=== PATIENT | female | born 2000 | race Caucasian/White ===

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

== ENCOUNTER 2022-08-03 22:28 | Emergency (ER) | payer OTHER ==
[~2022-08-03] VITALS: Ht 157.5 cm; Wt 86.2 kg
[~2022-08-03 22:28] MED LIST changes: +BUPRENORPHINE-1 EACH SL
--- OUTSIDE RECORDS SUMMARY | 2022-08-03 22:33 | XMS ---
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 Luana has no Care Guidelines for this patient. Latoya VISIT COUNT (12 MO.) 2 STACY Flores TOTAL 2 NOTE: Visits indicate total known visits. ED/UCC VISIT TRACKING (12 MO.) 08/03/2022 22:30 [facility] [place] TYPE: Emergency COMPLAINT: - POSS UTI 11/22/2021 08:27 [facility] [place] TYPE: Emergency COMPLAINT: - COLD SYMPTOMS DIAGNOSES: - Contact with and (suspected) exposure to COVID-19 - Cough, unspecified - Other nursing home (current) drug therapy - Acute upper respiratory infection, unspecified - Nicotine dependence, unspecified, uncomplicated - Unspecified asthma, uncomplicated INPATIENT VISIT TRACKING (12 MO.) No inpatient visits to display in this time frame [id number]
[2022-08-03] MEDS ORDERED: MACROBID 100 M100 MG PO (23:08)
== END 2022-08-03 23:24 | disposition home or self-care (01) ==
LOC: ED 22:28
DX: N39.0 Urinary tract infection, site not specified (principal); J45.909 Unspecified asthma, uncomplicated; F17.200 Nicotine dependence, unspecified, uncomplicated; Z79.899 Other long term (current) drug therapy
CPT/HCPCS: 81001; 84703; 99283

== ENCOUNTER 2022-08-31 19:17 | Emergency (ER) | payer OTHER ==
[~2022-08-31] VITALS: Ht 157.5 cm; Wt 92.2 kg
[~2022-08-31 19:17] MED LIST changes: +MACROBID 100 M100 MG PO
--- OUTSIDE RECORDS SUMMARY | 2022-08-31 19:21 | XMS ---
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 Luana has no Care Guidelines for this patient. Latoya V[facility] (12 MO.) [facility] NOTE: Visits indicate total known visits. 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
[2022-08-31] MEDS ORDERED: CEPHALEXIN500 M1 PO (20:07)
[2022-08-31] MEDS ORDERED: PYRIDIUM200 MG PO (20:07)
== END 2022-08-31 20:19 | disposition home or self-care (01) ==
LOC: ED 19:17
DX: N39.0 Urinary tract infection, site not specified (principal); J45.909 Unspecified asthma, uncomplicated; F43.10 Post-traumatic stress disorder, unspecified; F17.200 Nicotine dependence, unspecified, uncomplicated; Z79.899 Other long term (current) drug therapy
CPT/HCPCS: 81001; 84703; 99283; A9270

== ENCOUNTER → 2022-11-19 | Emergency (ER) | payer OTHER ==
[~2022-11-19] VITALS: Ht 157.5 cm; Wt 92.2 kg
[~2022-11-19] MED LIST changes: +CEPHALEXIN500 M1 PO; +PYRIDIUM200 MG PO
--- OUTSIDE RECORDS SUMMARY | 2022-11-19 21:26 | XMS ---
PreManage Notification: DARWIN WITT Security [place] Events No recent Security Events currently on file CRITERIA MET - [facility] CARE PROVIDERS -Sarahi- Dentist: Office Services Specialist [facility] PHONE: [phone] Luana has no Care Guidelines for this patient. E.DJoshua VISIT COUNT (12 MO.) 4 STACY Flores TOTAL 4 NOTE: Visits indicate total known visits. ED/UCC VISIT TRACKING (12 MO.) 11/19/2022 21:25 [facility] [place] TYPE: Emergency COMPLAINT: - ABDOMINAL PAIN 08/31/2022 19:18 [facility] [place] TYPE: Emergency COMPLAINT: - POSS UTI DIAGNOSES: - Dysuria - Nicotine dependence, unspecified, uncomplicated - Other emt intermediate (current) drug therapy - Post-traumatic stress disorder, unspecified - Unspecified asthma, uncomplicated - Urinary tract infection, site not specified 08/03/2022 22:30 [facility] [place] TYPE: Emergency COMPLAINT: - POSS UTI DIAGNOSES: - Dysuria - Nicotine dependence, unspecified, uncomplicated - Other emt intermediate (current) drug therapy - Unspecified asthma, uncomplicated - Urinary tract infection, site not specified 11/22/2021 08:[address] [facility] [place] TYPE: Emergency COMPLAINT: - COLD SYMPTOMS DIAGNOSES: - Acute upper respiratory infection, unspecified - Contact with and (suspected) exposure to COVID-19 - Cough, unspecified - Nicotine dependence, unspecified, uncomplicated - Other custodial (current) drug therapy - Unspecified asthma, uncomplicated INPATIENT VISIT TRACKING (12 MO.) No inpatient visits to display in this time frame [id number]
[2022-11-20 00:08] VITALS: BP 117/75
== END ==
LOC: ED 21:24
DX: R10.9 Unspecified abdominal pain (principal); J45.909 Unspecified asthma, uncomplicated; F17.200 Nicotine dependence, unspecified, uncomplicated; Z79.899 Other long term (current) drug therapy
CPT/HCPCS: 36415; 74177; 80053; 81003; 83690; 84703; 85025; 99406; J1885; Q9967

== ENCOUNTER 2024-02-21 22:04 | Emergency (ER) | payer OTHER ==
[~2024-02-21] VITALS: Ht 157.5 cm; Wt 86.0 kg
[~2024-02-21 22:04] MED LIST changes: +ONDANSETRON ODT8 MG PO; +TRIAMCINOLONE A15 G3 TOP
--- OUTSIDE RECORDS SUMMARY | 2024-02-21 22:06 | XMS ---
PreManage Notification: DARWIN WITT Security Receiver Stocker Events No recent Security Events currently on file CRITERIA MET - [facility] CARE PROVIDERS -, [facility] Dentist: Cash Applications Analyst Current [place] PHONE: [phone] -Sarahi- Dentist: Cash Applications Analyst Current [facility] PHONE: [phone] [facility]: [facility] Current \F\ [facility] PHONE: [phone] Luana has no Care Guidelines for this patient. E.D. VISIT COUNT (12 MO.) 3 STACY Flores TOTAL 3 NOTE: Visits indicate total known visits. 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 - Other viral agents as the cause of diseases classified elsewhere - Unspecified asthma, uncomplicated 05/10/2023 21:05 [facility] [place] TYPE: Emergency COMPLAINT: - RASH AND N/V DIAGNOSES: - Contact with and (suspected) exposure to COVID-19 - 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
[2024-02-21 22:59] LABS: BILIRUBIN, URINE NEGATIVE (negative); BLOOD/HGB, URINE SMALL (Negative); KETONE, URINE NEGATIVE (Negative); LEUK ESTERASE, URINE SMALL (negative); NITRITE, URINE NEGATIVE (negative); PH, URINE 5.5 (5-7)
[2024-02-21 23:19] LABS: CRYSTALS, URINE NONE SEEN (0-1+); EPITHELIAL CELLS, URINE SQUAMOUS 2+ /lpf (0-1+); WHITE BLOOD CELLS, URINE 41-50 /HPF (0-5)
[2024-02-21 23:20] LABS: BACTERIA, URINE 2+ /hpf (negative); CASTS, URINE NONE SEEN \\lpf; COLLECTION TYPE, URINE CLEAN CATCH; REFLEX CULTURE, URINE No (No)
[2024-02-21] MEDS ORDERED: MACROBID 100 M100 MG PO (23:35)
[2024-02-21] MEDS ORDERED: NITROFURANTOIN MONOHYD MACROCR 100 MG HOME.PACK PO ONE (23:45)
[2024-02-22 00:07] VITALS: BP 109/67
== END 2024-02-22 00:07 | disposition home or self-care (01) ==
LOC: ED 22:04
PROVIDERS: Family Medicine
DX: N39.0 Urinary tract infection, site not specified (principal); J45.909 Unspecified asthma, uncomplicated; F43.10 Post-traumatic stress disorder, unspecified; F17.200 Nicotine dependence, unspecified, uncomplicated; Z79.899 Other long term (current) drug therapy
CPT/HCPCS: 81001; 84703; 99283

== ENCOUNTER 2024-06-19 22:51 | Emergency (ER) | payer OTHER ==
[~2024-06-19] VITALS: Ht 157.5 cm; Wt 88.0 kg
[2024-06-19 23:15] LABS: BILIRUBIN, URINE NEGATIVE (negative); BLOOD/HGB, URINE NEGATIVE (Negative); KETONE, URINE NEGATIVE (Negative); LEUK ESTERASE, URINE NEGATIVE (negative); NITRITE, URINE NEGATIVE (negative)
[2024-06-19 23:28] LABS: BACTERIA, URINE 2+ /hpf (negative); CRYSTALS, URINE NONE SEEN (0-1+); EPITHELIAL CELLS, URINE SQUAMOUS 2+ /lpf (0-1+)
[2024-06-19 23:29] LABS: CASTS, URINE NONE SEEN \\lpf; COLLECTION TYPE, URINE CLEAN CATCH; REFLEX CULTURE, URINE No (No)
[2024-06-19] MEDS ORDERED: PHENAZOPYRIDINE HCL 95 MG TAB PO ONE (23:30)
[2024-06-19] MEDS ORDERED: PYRIDIUM100 MG PO (23:31)
[2024-06-19 23:46] VITALS: BP 131/71
== END 2024-06-19 23:47 | disposition home or self-care (01) ==
LOC: ED 22:51
PROVIDERS: Internal Medicine
DX: R30.0 Dysuria (principal); F17.200 Nicotine dependence, unspecified, uncomplicated; Z79.899 Other long term (current) drug therapy
CPT/HCPCS: 81001; 84703; 87088; 99283